=== PATIENT | male | born 1970 | race Caucasian/White ===

== ENCOUNTER 2018-07-29 17:11 | Emergency (ER) | payer MEDICAID ==
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
[2018-07-29 18:07] LABS: PLATELET COUNT 255 10^3/uL (150-400)
[2018-07-29] MEDS ORDERED: QUEtiapine FUMARATE 50 MG TAB PO ONE (18:54)
[2018-07-29] MEDS ORDERED: AMITRIPTYLINE HCL 100 MG TAB PO ONE (18:55)
[2018-07-29] MEDS ORDERED: QUEtiapine FUMARATE 200 MG TAB PO ONE (19:15)
[2018-07-29 19:30] VITALS: BP 122/71
== END 2018-07-29 19:30 | disposition home or self-care (01) ==
DX: T33.831A Superficial frostbite of right toe(s), initial encounter (principal); T33.832A Superficial frostbite of left toe(s), initial encounter; X31.XXXA Exposure to excessive natural cold, initial encounter; Y99.8 Other external cause status; E11.9 Type 2 diabetes mellitus without complications; F31.9 Bipolar disorder, unspecified; Z59.0 Homelessness

== ENCOUNTER 2018-07-31 15:23 | Emergency (ER) | payer MEDICAID ==
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
[2018-07-31 15:46] VITALS: BP 126/76
== END 2018-07-31 15:48 | disposition home or self-care (01) ==
LOC: EDUNIT#
DX: T33.831A Superficial frostbite of right toe(s), initial encounter (principal); T33.832A Superficial frostbite of left toe(s), initial encounter; X31.XXXA Exposure to excessive natural cold, initial encounter; Z59.0 Homelessness; F31.9 Bipolar disorder, unspecified

== ENCOUNTER 2018-07-31 18:47 | Inpatient (IN) | payer MEDICAID ==
[2018-07-31] MEDS ORDERED: SODIUM BICARBONATE 50 MEQ/50 ML SYR IVP ONE (18:52)
[2018-07-31] MEDS ORDERED: CHARCOAL/SORBITOL SOLUTION 25 GM/120 ML TUBE PO ONE (18:54)
[2018-07-31] MEDS ORDERED: PROPOFOL/EMULSION 1,000 MG/100 ML BOTTLE IV ONE (19:00)
[2018-07-31] MEDS ORDERED: SODIUM BICARBONATE 100 MEQ in D5W 1,000 ML IV ONE (19:00)
[2018-07-31 19:11] LABS: PLATELET COUNT 163 10^3/uL (150-400)
[2018-07-31] MEDS ORDERED: MIDAZOLAM 2 MG/2 ML VIAL IVP ONE (19:11)
--- NOTE | 2018-07-31 19:20 | EDPHY ---
H & P Time Seen by Provider: 07/31/18 18:52 HPI/ROS: Chief complaint. Poly pharmacy ODT HPI. 47-year-old male who was seen yesterday and today in our emergency department for frostbite to feet was discharged to [facility]. He apparently was given prescriptions of Seroquel and amitriptyline. The [facility] collapsed at the [facility]. EMS was called and patient was found to be unresponsive to pain. Nasal trumpet was placed without difficulty. No evidence of trauma from fall. It is unclear how many amitriptyline and Seroquel he took however the 2 pill bottles that EMS brought are empty. Ingestion was shortly prior to arrival. ROS 10 systems were reviewed and negative with the exception of the elements mentioned in the history of present illness Past Medical/Surgical History: Diabetes, hep C, spinal fusion, bipolar, PTSD, chronic back pain, atrial flutter Social History: Single, daily smoker, no alcohol Smoking Status: Current every day smoker Physical Exam: General Appearance: Unresponsive male vital signs show heart rate 109 Eyes: Pupils are small and poorly reactive. ENT, Mouth: Mucous membranes are moist. Respiratory: There are no retractions, lungs are clear to auscultation. Cardiovascular: Regular rate and rhythm. Gastrointestinal: Abdomen is soft and nontender, no masses, bowel sounds normal. Neurological: Unresponsive Skin: Warm and dry, no rashes. Musculoskeletal: Neck is supple nontender. Extremities symmetrical, full range of motion. Psychiatric: Patient is unresponsive there is no agitation. Constitutional: Initial Vital Signs Temperature (C) 35.4 C L 07/31/18 18:53 Heart Rate 109 H 07/31/18 18:53 Respiratory Rate 18 07/31/18 18:53 Blood Pressure 138/60 H 07/31/18 18:53 O2 Sat (%) 100 07/31/18 18:53 O2 Delivery Mode Non-Rebreather Mask O2 (L/minute) 15 Allergies/Adverse Reactions: poison rene extract Allergy (Verified 07/29/18 17:13) poison oak extract Allergy (Verified 07/29/18 17:13) Medical Decision Making - Diagnostics EKG Interpretation: EKG interpreted by me shows sinus tachycardia without ectopy and QRS at 124 milliseconds. Heart rate is 109 2nd EKG after treatment shows normal sinus rhythm and QRS is now 117 milliseconds. Heart rate 97 Imaging Results: Imaging Impressions Chest X-Ray 07/31/18 19:03 Impression: 1. Well-positioned ET tube. 2. Minimal interstitial edema versus pneumonitis. Procedures: IV normal saline monitor Sodium bicarbonate at bolus with 50 mEq. Sodium bicarbonate drip As the patient has potential for decreased respiration though currently seeming to handle secretions I am concerned about airway protection. Patient is intubated by me using a 7.5 endotracheal 2 with a glide scope after to using etomidate 20 mg I V. CO2 detector shows color change. Growth breath sounds are symmetrical. Steam in the endotracheal tube. Patient is given Versed post intubation for sedation and then started on propofol drip Post intubation chest x-ray shows tube to be in good position As the ingestion has been recent since the patient was just seen in the emergency department this afternoon we placed an NG tube and gave the patient charcoal and sorbitol and then remove the NG tube. [place] catheter is placed ED Course/Re-evaluation: Patient remained stable. No family here. I consulted and discussed case with Dr. Carrillo, hospitalist who agrees to the admission Differential Diagnosis: Ingestion of Seroquel and amitriptyline with beginning to have widened QRS Now after bicarb treatment QRS is narrowing. There is no ectopy. We do not know the amount that he took. Unknown currently if other medications have been ingested as well. Tox screen is pending. Critical Care Time: Critical care time exclusive procedures 45 min - Data Points Laboratory Results: Laboratory Results 07/31/18 19:00 07/31/18 19:00 07/31/18 07/31/18 19:00 19:00 WBC 11.08 10^3/uL H 10^3/uL (3.80-9.50) RBC 4.41 10^6/uL 10^6/uL (4.40-6.38) Hgb 13.1 g/dL L g/dL (13.7-17.5) Hct 38.2 % L % (40.0-51.0) MCV 86.6 fL fL (81.5-99.8) MCH 29.7 pg pg (27.9-34.1) MCHC 34.3 g/dL g/dL (32.4-36.7) RDW 11.9 % % (11.5-15.2) Plt Count 163 10^3/uL 10^3/uL (150-400) MPV 9.4 fL fL (8.7-11.7) Neut % (Auto) 42.3 % % (39.3-74.2) Lymph % (Auto) 45.1 % H % (15.0-45.0) [place] % (Auto) 7.0 % % (4.5-13.0) Eos % (Auto) 4.8 % % (0.6-7.6) Baso % (Auto) 0.4 % % (0.3-1.7) Nucleat RBC Rel Count 0.0 % % (0.0-0.2) Absolute Neuts (auto) 4.69 10^3/uL 10^3/uL (1.70-6.50) Absolute Lymphs (auto) 5.00 10^3/uL H 10^3/uL (1.00-3.00) Absolute Monos (auto) 0.78 10^3/uL 10^3/uL (0.30-0.80) Absolute Eos (auto) 0.53 10^3/uL H 10^3/uL (0.03-0.40) Absolute Basos (auto) 0.04 10^3/uL 10^3/uL (0.02-0.10) Absolute Nucleated RBC 0.00 10^3/uL 10^3/uL (0-0.01) Immature Gran % 0.4 % % (0.0-1.1) Immature Gran # 0.04 10^3/uL 10^3/uL (0.00-0.10) RBC/WBC/PLT Morphology TNP Platelet Estimate TNP Sodium 135 mEq/L mEq/L (135-145) Potassium 3.5 mEq/L mEq/L (3.3-5.0) Chloride 95 mEq/L L mEq/L (97-110) Carbon Dioxide 26 mEq/l mEq/l (22-31) Anion Gap 14 mEq/L mEq/L (6-14) BUN 10 mg/dL mg/dL (7-23) Creatinine 0.8 mg/dL mg/dL (0.7-1.3) Estimated GFR > 60 Glucose 304 mg/dL H mg/dL (70-100) Calcium 8.8 mg/dL mg/dL (8.5-10.4) Acetaminophen < 10 mcg/mL L mcg/mL (10-30) Ethyl Alcohol < 10 mg/dL mg/dL (0-10) Medications Given: Propofol (Diprivan 10 Mg/Ml (Premix)) 100 mls @ 0 mls/hr IV CONT LISA; Titrate PRN Reason: Protocol Stop: 01/27/19 19:59 Last Admin: 07/31/18 19:48 Dose: 100 mls Discontinued Medications Charcoal/Sorbitol (Actidose) 25 gm PO EDNOW ONE Stop: 07/31/18 18:55 Last Admin: 07/31/18 19:25 Dose: 25 gm Sodium Bicarbonate 100 meq/ (Dextrose) 1,100 mls @ 0 mls/hr IV EDNOW ONE Stop: 07/31/18 19:01 Last Admin: 07/31/18 19:19 Dose: 1,100 mls Midazolam HCl (Versed) 5 mg IVP EDNOW ONE Stop: 07/31/18 19:12 Last Admin: 07/31/18 19:10 Dose: 5 mg Ondansetron HCl (Zofran) 4 mg IVP EDNOW ONE Stop: 07/31/18 19:38 Last Admin: 07/31/18 19:23 Dose: 4 mg Sodium Bicarbonate (Sodium Bicarbonate) 50 meq IVP EDNOW ONE Stop: 07/31/18 18:53 Last Admin: 07/31/18 18:57 Dose: 50 meq Departure - Departure Disposition: [facility] Clinical Impression: Polypharmacy overdose Condition: Fair
[2018-07-31] MEDS ORDERED: ONDANSETRON 4 MG/2 ML VIAL ONE (19:24)
[2018-07-31] MEDS ORDERED: ONDANSETRON 4 MG/2 ML VIAL IVP ONE (19:37)
[2018-07-31] MEDS ORDERED: PROPOFOL/EMULSION 100 ML IV SCH (20:00)
[2018-07-31] MEDS ORDERED: ETOMIDATE 40 MG/20 ML INJ ONE (20:58)
[2018-07-31] MEDS ORDERED: ACETAMINOPHEN 325 MG TAB PO PRN (21:25)
[2018-07-31] MEDS ORDERED: ONDANSETRON 4 MG/2 ML VIAL IVP PRN (21:25)
[2018-07-31] MEDS ORDERED: ALBUTEROL 60 PUFFS/8 GM MDI IH PRN (21:25)
[2018-07-31] MEDS ORDERED: LORazepam 2 MG/ML INJ IVP PRN (21:25)
[2018-07-31] MEDS ORDERED: PROMETHAZINE HCL 25 MG/ML INJ IVP PRN (21:25)
[2018-07-31] MEDS ORDERED: D50W 25 GM/50 ML SYR IVP PRN (21:27)
[2018-07-31] MEDS ORDERED: NS 1,000 ML IV SCH (21:30)
--- NOTE | 2018-07-31 21:40 | CPEKG ---
Test Reason : OPEN Blood Pressure : / mmHG Vent. Rate : 109 BPM Atrial Rate : 109 BPM P-R Int : 151 ms QRS Dur : 124 ms QT Int : 394 ms P-R-T Axes : 068 079 009 degrees QTc Int : 531 ms Sinus tachycardia Nonspecific intraventricular conduction delay Confirmed by Reza Dunham ([id number]) on 07/31/2018 9:39:45 PM Referred By: Confirmed By:Reza Dunham
--- NOTE | 2018-07-31 21:40 | CPEKG ---
Test Reason : OPEN Blood Pressure : / mmHG Vent. Rate : 097 BPM Atrial Rate : 098 BPM P-R Int : 169 ms QRS Dur : 117 ms QT Int : 419 ms P-R-T Axes : 069 083 028 degrees QTc Int : 533 ms Sinus rhythm Nonspecific intraventricular conduction delay Probable anteroseptal infarct, old Confirmed by Reza Dunham ([id number]) on 07/31/2018 9:39:51 PM Referred By: Confirmed By:Reza Dunham
--- NOTE | 2018-07-31 22:56 | PDGENHP ---
History and Physical - Chief Complaint overdose - History of Present Illness 47 yo homeless M with PMH of bipolar d/o as well as multiple prior suicide attempts presenting with presumed polypharmacy overdose in the setting of presumed SA. This evaluation is limited by the fact that patient is intubated and sedated at the time of my evaluation, therefore history obtained largely by chart review. Patient had been evaluated in this ER 3 times in the last 2 days for complaints related to bilateral frostbite of the feet. After his discharge earlier in the day today, [facility] of his medications, specifically seroquel and amitritpyline and then found to be obtunded at [facility]. Patient presented back to the ER obtunded and s/p presumably intentional drug overdose. History Information - Allergies/Home Medication List Allergies/Adverse Reactions: poison rene extract Allergy (Verified 07/29/18 17:13) poison oak extract Allergy (Verified 07/29/18 17:13) Home Medications: Unobtainable 07/31/18 [Last Taken Unknown] I have personally reviewed and updated: family history, medical history, social history, surgical history - Past Medical History psychiatric history Additional medical history: Mental health disorder, suspected PTSD and bipolar disease, right foot wound with foreign object, hepatitis-C virus unclear whether he has received pneumonia, perforation of duodenal ulcer - Surgical History Additional surgical history: exploratory laparotomy on 08/15/2016 with Oscar patch placed for an anterior perforated duodenal ulcer, recent right foot debridement - Family History Positive for: non-pertinent Additional family history: mother with bipolar disease, sibling with bipolar disease, sibling with successful suicide attempt, alcoholism - Social History Smoking Status: Current every day smoker Alcohol Use: Other (unobtainable) Drug Use: Other (unobtainable) Additional social history: homeless Review of Systems Review of Systems: ROS: 10pt was reviewed & negative except for what was stated in HPI & below Physical Exam Physical Exam: Temp Pulse Resp BP Pulse Ox 36.0 C 99 14 147/83 H 100 07/31/18 20:37 07/31/18 20:37 07/31/18 20:37 07/31/18 20:37 07/31/18 20:37 FIO2 (%) 100 Constitutional: appears nourished, unkempt Eyes: PERRL, anicteric sclera Ears, Nose, Mouth, Throat: other (ETT in place) Cardiovascular: regular rate and rhythym, no murmur, rub, or gallop, No edema Respiratory: clear to auscultation Gastrointestinal: normoactive bowel sounds, soft, non-tender abdomen Genitourinary: no bladder tenderness Skin: warm Musculoskeletal: No asymmetric calves Neurologic: other (intubated and sedated) Psychiatric: other (intubated and sedated) Lab Data & Imaging Review 07/31/18 19:00 07/31/18 19:00 WBC 11.08 10^3/uL (3.80-9.50) H 07/31/18 19:00 RBC 4.41 10^6/uL (4.40-6.38) 07/31/18 19:00 Hgb 13.1 g/dL (13.7-17.5) L 07/31/18 19:00 Hct 38.2 % (40.0-51.0) L 07/31/18 19:00 MCV 86.6 fL (81.5-99.8) 07/31/18 19:00 MCH 29.7 pg (27.9-34.1) 07/31/18 19:00 MCHC 34.3 g/dL (32.4-36.7) 07/31/18 19:00 RDW 11.9 % (11.5-15.2) 07/31/18 19:00 Plt Count 163 10^3/uL (150-400) 07/31/18 19:00 MPV 9.4 fL (8.7-11.7) 07/31/18 19:00 Neut % (Auto) 42.3 % (39.3-74.2) 07/31/18 19:00 Lymph % (Auto) 45.1 % (15.0-45.0) H 07/31/18 19:00 [place] % (Auto) 7.0 % (4.5-13.0) 07/31/18 19:00 Eos % (Auto) 4.8 % (0.6-7.6) 07/31/18 19:00 Baso % (Auto) 0.4 % (0.3-1.7) 07/31/18 19:00 Nucleat RBC Rel Count 0.0 % (0.0-0.2) 07/31/18 19:00 Absolute Neuts (auto) 4.69 10^3/uL (1.70-6.50) 07/31/18 19:00 Absolute Lymphs (auto) 5.00 10^3/uL (1.00-3.00) H 07/31/18 19:00 Absolute Monos (auto) 0.78 10^3/uL (0.30-0.80) 07/31/18 19:00 Absolute Eos (auto) 0.53 10^3/uL (0.03-0.40) H 07/31/18 19:00 Absolute Basos (auto) 0.04 10^3/uL (0.02-0.10) 07/31/18 19:00 Absolute Nucleated RBC 0.00 10^3/uL (0-0.01) 07/31/18 19:00 Immature Gran % 0.4 % (0.0-1.1) 07/31/18 19:00 Immature Gran # 0.04 10^3/uL (0.00-0.10) 07/31/18 19:00 RBC/WBC/PLT Morphology TNP 07/31/18 19:00 Platelet Estimate TNP 07/31/18 19:00 VBG Lactic Acid 0.8 mmol/L (0.7-2.1) 07/31/18 21:40 Sodium 135 mEq/L (135-145) 07/31/18 19:00 Potassium 3.5 mEq/L (3.3-5.0) 07/31/18 19:00 Chloride 95 mEq/L (97-110) L 07/31/18 19:00 Carbon Dioxide 26 mEq/l (22-31) 07/31/18 19:00 Anion Gap 14 mEq/L (6-14) 07/31/18 19:00 BUN 10 mg/dL (7-23) 07/31/18 19:00 Creatinine 0.8 mg/dL (0.7-1.3) 07/31/18 19:00 Estimated GFR > 60 07/31/18 19:00 Glucose 304 mg/dL (70-100) H 07/31/18 19:00 Calcium 8.8 mg/dL (8.5-10.4) 07/31/18 19:00 Total Bilirubin 0.5 mg/dL (0.1-1.4) 07/31/18 21:40 Conjugated Bilirubin 0.0 mg/dL (0.0-0.5) 07/31/18 21:40 Unconjugated Bilirubin 0.5 mg/dL (0.0-1.1) 07/31/18 21:40 AST 62 IU/L (17-59) H 07/31/18 21:40 ALT 54 IU/L (21-72) 07/31/18 21:40 Alkaline Phosphatase 63 IU/L (38-126) 07/31/18 21:40 Total Protein 4.5 g/dL (6.3-8.2) L 07/31/18 21:40 Albumin 2.6 g/dL (3.5-5.0) L 07/31/18 21:40 Salicylates < 1.0 mg/dL (2.0-20.0) L 07/31/18 21:40 Urine Opiates Screen NEGATIVE (NEGATIVE) 07/31/18 19:33 Acetaminophen < 10 mcg/mL (10-30) L 07/31/18 19:00 Urine Barbiturates NEGATIVE (NEGATIVE) 07/31/18 19:33 Ur Phencyclidine Scrn NEGATIVE (NEGATIVE) 07/31/18 19:33 Ur Amphetamine Screen NEGATIVE (NEGATIVE) 07/31/18 19:33 U Benzodiazepines Scrn NEGATIVE (NEGATIVE) 07/31/18 19:33 Urine Cocaine Screen NEGATIVE (NEGATIVE) 07/31/18 19:33 U Marijuana (THC) Screen NON-NEGATIVE (NEGATIVE) H 07/31/18 19:33 Ethyl Alcohol < 10 mg/dL (0-10) 07/31/18 19:00 Visualized and Interpreted imaging results: Yes Interpretation: EGT in good position Visualized and Interpreted EKG results: Yes EKG additional interpertation: sinus tachycardia, nonspecific IVCD Assessment & Plan Assessment: 47 yo M with hx of bipolar d/o with multiple prior SA's presenting s/p suicide attempt by polydrug overdose # polysubstance overdose/SA: patient with hx of prior SA and this likely represents another attempt. By bottles available it appears he overdosed on seroquel and amitriptyline--exact amount difficult to ascertain as bottles labeled strangely. He was noted to be obtunded and not protecting his airway, ecg relatively benign with normal QT. Reviewed toxicology data and amitriptyline overdose response can be unpredictable, seroquel likely to lead to respiratory depression. Continue cardiac monitoring, monitor in ICU. Patient did receive charcoal in ED. 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 Old records reviewed and summarized as above. Care plan reviewed with ER doctor. > 45 critical care time spent with this patient in reviewing labs/imaging and coordinating care with ER doctor and nursing at patients bed side.
[2018-08-01 04:45] LABS: PLATELET COUNT 149 10^3/uL (150-400)
[2018-08-01] MEDS ORDERED: PROTOCOL POTASSIUM 1 DOSE MISC PRN ×2 (07:26→15:04)
[2018-08-01] MEDS: POTASSIUM Cl (KCl) 100 ML IV SCH ×4 (08:38→11:01)
[2018-08-01] MEDS: INSULIN LISPRO 100 UNIT/ML SC SCH ×3 (08:38→19:53)
[2018-08-01] MEDS ORDERED: ENOXAPARIN 40 MG/0.4 ML SYR SC SCH (09:00)
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
--- NOTE | 2018-08-01 09:45 | HOSPPROG ---
Hospitalist Progress Note Assessment/Plan: 47 yo M w bipolar, frostbite here w amitritpyline/seroquel overdose, resp failure TCA overdose: intervals OK (interp by me) resp failure: largely mental status driven on SBT now suspect he will be extubated today suicide attempt: M1 hold after extubation frostbite: no infection wound care consult proph: lmwh dispo: icu, m1 hold 35 minutes crit care Subjective: case discussed w dr beatty Objective: Vital Signs Temp Pulse Resp BP Pulse Ox 37.1 C 93 17 145/84 H 100 08/01/18 09:00 08/01/18 09:00 08/01/18 09:00 08/01/18 09:00 08/01/18 09:00 Laboratory Results 08/01/18 04:30 08/01/18 04:30 07/31/18 08/01/18 08/02/18 05:59 05:59 05:59 Intake Total 2884 Output Total 1900 Balance 984 - Physical Exam Constitutional: other (intubated and sedated) Eyes: PERRL, anicteric sclera Ears, Nose, Mouth, Throat: moist mucous membranes, hearing normal Cardiovascular: regular rate and rhythym, no murmur, rub, or gallop Respiratory: no respiratory distress, No no rales or rhonchi Gastrointestinal: normoactive bowel sounds, soft, non-tender abdomen Genitourinary: no bladder fullness, dickson in urethra Skin: warm, normal color Musculoskeletal: full muscle strength, no muscle tenderness Neurologic: No AAOx3 Psychiatric: No interacting appropriately Lymph, Heme, Immunologic: no cervical LAD ICD10 Worksheet Patient Problems: Problems Problem Status Onset Abdominal pain Acute Frostbite Acute Perforated duodenal bulb ulcer Acute Pneumonia Acute
--- NOTE | 2018-08-01 14:07 | ASMTCMCOM ---
CM Note CM Note Notes: Patient brought to ED by EMS after he reportedly became unresponsive at a "[facility]" yesterday (07/31) evening. I saw patient at [facility] on , 07/30, for complaints r/t his frostbitten toe. I sent him to [facility] for wound care. He was seen there on and also , 07/31. After his wound care appt, he was screened for [facility] services (he needed a new prescriber). According to Rolanda, the auto bumper straightener at [facility], the MHP neurology manager felt he would be better served by [facility] crisis services. This is when the story becomes unclear: Rolanda was under the impression that patient was sent to [facility] for a mental health hold; however, per our records, he was seen in the [facility] ED twice that day, at 3:30 PM (discharged to street) and at 7:15PM (admitted), so it doesn't seem like he was ever sent to [facility]. Rolanda did confirm that he was given 5-day supplies of his medications at some point yesterday. Patient is homeless and utilizes services at [facility]. As mentioned above, he is also a client of [facility] at their [facility]. When he is less sedated, we will speak to him about what happened and what we can do to support him upon discharge. [facility] telephonic nurse case manager and [facility] staff informed of his admission. CM to follow. Date Signed: 08/01/2018 02:06 PM Electronically Signed By:Tammy Peace RN
--- NOTE | 2018-08-01 14:18 | ASMTCASEMG ---
Living Arrangements What is your living Answers: Alone arrangement? Who do you live with? Type Of Residence What kind of residence do Answers: Homeless you live in? Discharge Plan Comments Coordination Status Comments Notes: Patient is a 47yo , homeless male with a hx of Bipolar disorder as well as prior suicide attempts presenting with polypharmacy overdose. Patient was obtunded when he presented back to the ER after 3 visits in the last 2 days. Patient had initially been evaluated for complaints related to bilateral frostbite of the feet. He has been admitted for polysubstance overdose, acute hypoxic respiratory failure, frostbite, Bipolar disorder, SMA and left renal artery stenosis, recent perforated duodenal ulcer/peritonitis, and leukocytosis. Wound care has been ordered. Patient will be placed on an M1 hold and will require a TLC psych eval when he is medically clear. Patient is homeless.CM will follow. Date Signed: 08/01/2018 02:17 PM Electronically Signed By:Catrachita Thomas LCSW
--- NOTE | 2018-08-01 14:28 | PDMN ---
Medical Necessity Medical necessity: Pt meets IP criteria per & LINETTE M-153; est los >2 mn for eval/tx of polysubstance overdose w/acute hypoxic respiratory failure & bilateral frostbite of feet; pt intubated & sedated, on M1 hold due to likely suicide attempt; admit to ICU for further monitoring, safety/stabilization, Pulmonology/TLC/Wound Care consults & IVFs; per H&P & order 07/31/18
[2018-08-01] MEDS ORDERED: ALBUTEROL 60 PUFFS/8 GM MDI IH PRN (14:37)
[2018-08-01] MEDS ORDERED: POTASSIUM CL 10 MEQ TAB PO ONE (15:05)
--- NOTE | 2018-08-01 15:59 | WOCRNPDOC ---
WOCRKrishna Advanced Assessment Note - Skin Integrity Problem, Advanced Assess Right Toes Frostbite Dressing Type: Open to Air Exudate Amount: Moderate Exudate Characteristic(s): Serosanguinous Kylie Wound Tissue: Erythema, Non-blanching, Swollen, Shiny Kylie Wound Swelling: Moderate Wound Bed Color: Red Wound Bed Constitution: Red/[place] - Non Granular Tissue, Intact Serous Filled Blister, De-roofed Serous Blister Site Measurement - Head-to-Toe Length X Width X Depth (cm): Right great toe deroofed blister 1.4x1.8x.02 Skin Integrity Problem Comment: Patient has frostbite from cold exposure on 10/01. Right great toe has deroofed blister over area from interphalangeal joint to proximal phalange. Second toe has intact serous filled blister above proximal phalange. All toes present with discoloration from proximal phalange to distal end, with 3rd 4th and 5th toes having traffic technician discoloration. Great toe and 2nd toe appear much darker. On plantar aspect of toes, 2nd toe presents the darkest. Right great toe also has an intact serous blister on medial aspect of plantar surface. Wound care will follow. Left Toes Frostbite Dressing Type: Open to Air Kylie Wound Tissue: Non-blanching, Swollen, Shiny Kylie Wound Swelling: Moderate Wound Bed Color: Black, Blue Wound Bed Constitution: Intact Serous Filled Blister Site Measurement - Head-to-Toe Length X Width X Depth (cm): 4th toe 0.8x0.7xintact blister Skin Integrity Problem Comment: Patient has frostbite from cold exposure on 10/01. All toes are discolored from distal phalange to distal end of toe, with 2nd and 3rd toe presenting darkest. Intact serous filled blister on proximal phalange of 4th toe. Plantar surfaces of toes present with same discoloration pattern, with 2nd and 3rd toes again darker than other toes. Wound care will follow. CHRISTIAN Noel in room for assessment.
--- NOTE | 2018-08-01 19:19 | GCON ---
PULMONARY CRITICAL CARE CONSULTATION. DATE OF CONSULTATION: 08/01/2018 HISTORY OF PRESENT ILLNESS: This patient is a 47-year-old male with a history of bipolar disorder an d homelessness, with multiple prior suicide attempts. He apparently had been seen in the emergency d epartment several times in the last few days, complaining of bilateral frostbite but was stable enoug h for discharge. He apparently went to [facility] to get refills of medications and then was found obtunded with empty pill bottles in his hands. He is brought to the emergency department where he was intubated for airway protection and hypoxemia and a presumed intentional drug overdose. At the time of my evaluation, the patient was on the ventilator, was unable to provide any historica l details. REVIEW OF SYSTEMS: As far as I can tell from medical record was otherwise negative. PAST MEDICAL HISTORY: Includes bipolar disorder, PTSD, hepatitis C, perforated duodenal ulcer. PAST SURGICAL HISTORY: Includes exploratory laparotomy, recent foot debridement. SOCIAL HISTORY: He is a current smoker. Alcohol and recreational use are uncertain though marijuana was in his tox screen. FAMILY HISTORY: Includes bipolar disorder and suicide attempts. CURRENT MEDICATIONS: Include albuterol, Lovenox, insulin, Ativan, Phenergan. PHYSICAL EXAM: VITAL SIGNS: At the time of my evaluation, he was afebrile. Blood pressure 137/76, heart rate of 89, respirations 18, oxygen saturation 100% on ventilator at 40%, 5 of PEEP. He was ea sily aroused and cooperative and followed commands on the ventilator, and was placed on a 5 in 5 wean which he tolerated well followed by an extubation at that time. HEENT: His pupils are equally round and reactive to light. Nonicteric and noninjected. Mucous membranes moist without erythema or exud ate. NECK: Supple without adenopathy or jugular vein distention. LUNGS: Breath sounds were clear to auscultation bilaterally without wheezes, rubs, or rales. HEART: Regular rate and rhythm without mu rmurs, rubs, gallops. ABDOMEN: Soft, nontender, nondistended without hepatosplenomegaly. EXTREMITI ES: No clubbing, cyanosis, or edema. NEUROLOGIC: Nonfocal, including cranial nerves, deep tendon re flexes. OBJECTIVE DATA: Includes a white count of 11 when he arrived, down to 8.15 today, hematocrit 34, nati telets of 149. Basic metabolic panel was essentially normal though his potassium was 3.5 on arrival, 2.9 this morning, subsequently replaced. Liver function tests were fine. Albumin was 2.6. Toxicol ogy screen showed marijuana. EKG showed no evidence of TCA overdose. ASSESSMENT AND PLAN: 1. Presumed suicide attempt. The patient with multiple attempts in the past. Once he is extubated, we should be able to clarify that and potentially involve Psychiatry for further evaluation of this problem. 2. Acute respiratory failure with hypoxemia and ventilator dependency. He seemed to be doing quite well. He is extubated easily without difficulty and should continue with pulmonary toilet moving for gabriel. /[id number]/MODL
[2018-08-01] MEDS ORDERED: oxyCODONE IR 5 MG TAB PO PRN (21:08)
[2018-08-01 21:17] VITALS: BP 132/73
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
--- NOTE | 2018-08-01 23:03 | ASMTTCLDSP ---
TLC Discharge Disposition Disposition: Answers: Admit Disposition Notes: Notes: Pt to be admitted to [facility]N Discharge Concerns/Recommendations: Notes: Dr. Ilene Welsh, on-call psychiatrist concurred with the ICU hospitalist Dr.J Wallace that pt appears to meet the 27-65 criteria requiring in-pt psychiatric hospitalization as pt appears to be an imminent risk to self and is gravely disabled due to a mental illnes condition. For inpatient Ilene Welsh MD admission, the following psychiatrist agreed to accept patient for admission to [facility] ([facility] Type of Hold: Answers: M1/72-hour Hold Hold initiated by: Answers: Psychiatrist Date Signed: 08/01/2018 11:02 PM Electronically Signed By:Josee Clark
--- NOTE | 2018-08-02 08:54 | CPEKG ---
Test Reason : OPEN Blood Pressure : / mmHG Vent. Rate : 094 BPM Atrial Rate : 094 BPM P-R Int : 157 ms QRS Dur : 107 ms QT Int : 383 ms P-R-T Axes : 074 076 045 degrees QTc Int : 479 ms Sinus rhythm Borderline prolonged QT interval Confirmed by Shorty Aj ([id number]) on 08/02/2018 8:54:17 AM Referred By: Confirmed By:Shorty Aj
== END 2018-08-01 23:35 | DRG 812 ==
LOC: EDUNIT# → EEVIPCON 19:20 → F2N 20:15
PROVIDERS: ADMIT Internal Medicine; ATTEND Internal Medicine
PROC: 5A1935Z Respiratory Ventilation, Less than 24 Consecutive Hours (ICD-10-PCS; principal; 2018-07-31)
PROC: 0BH17EZ Insertion of Endotracheal Airway into Trachea, Via Natural or Artificial Opening (ICD-10-PCS; principal; 2018-07-31)
DX: T50.992A Poisoning by other drugs, medicaments and biological substances, intentional self-harm, initial encounter (principal); J96.01 Acute respiratory failure with hypoxia; T43.012A Poisoning by tricyclic antidepressants, intentional self-harm, initial encounter; T33.831A Superficial frostbite of right toe(s), initial encounter; T33.832A Superficial frostbite of left toe(s), initial encounter; F31.9 Bipolar disorder, unspecified; E11.9 Type 2 diabetes mellitus without complications; Z59.0 Homelessness; Z72.0 Tobacco use; X31.XXXA Exposure to excessive natural cold, initial encounter
CPT/HCPCS: 80305; 96374; G0480; J1650; J1815; J2250; J2405; J2550; J2704; J3480

== ENCOUNTER 2018-08-02 | Inpatient (IN) | payer MEDICAID, OTHER ==
[2018-08-02] MEDS ORDERED: MAGNESIUM HYDROXIDE 30 ML UDCUP PO PRN (00:17)
[2018-08-02] MEDS ORDERED: MAG HYDROX/AL HYDROX/SIMETH 30 ML UDCUP PO PRN (00:17)
[2018-08-02] MEDS ORDERED: NICOTINE POLACRILEX 2 MG GUM B PRN (00:17)
[2018-08-02] MEDS: LORazepam 0.5 MG TAB PO PRN ×2 (00:43→18:03)
[2018-08-02] MEDS: oxyCODONE IR 5 MG TAB PO PRN ×5 (00:44→21:54)
[2018-08-02] MEDS: OLANZapine 5 MG TAB PO PRN ×2 (00:44→21:13)
[2018-08-02] MEDS ORDERED: PNEUMOCOCCAL 0.5ML VACCINE VIAL IM ONE (11:39)
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
--- NOTE | 2018-08-02 12:23 | WOCRNPDOC ---
JERRELL Advanced Assessment Note - Skin Integrity Problem, Advanced Assess Right Toes Frostbite Dressing Type: Mepilex Transfer Dressing Description: Clean/Dry, Intact Exudate Amount: Scant Exudate Color: Yellow Exudate Characteristic(s): Serous Integumentary Issue Intervention: Dressing Removed Kylie Wound Tissue: Erythema, Non-blanching, Swollen, Shiny Kylie Wound Swelling: Moderate Wound Bed Color: Black, Blue, Red Wound Bed Constitution: Red/[place] - Non Granular Tissue, Intact Serous Filled Blister, De-roofed Serous Blister Site Measurement - Head-to-Toe Length X Width X Depth (cm): Deroofed blister on right great toe - 1.7x2.5x0.2 Skin Integrity Problem Comment: Frostbite from cold exposure on 07/26/18. Deroof blister noted on 1st toe. Intact serous filled blisters noted on 1st and 2nd toes. 2nd, 3rd, and 4th toes have the most discoloration and appear darker than the 1st and 5th toes. Mepilex transfer dressing was in place. Removed so patient could shower. Will apply silvasorb to deroofed blister. Please keep Mepilex transfer woven between toes to keep skin off skin. If blisters deroof, apply silvasorb. Wound care will round again on Sunday. Lauro in room for assessment. Left Toes Frostbite Dressing Type: Mepilex Transfer Dressing Description: Clean/Dry, Intact Exudate Amount: Scant Exudate Color: Yellow Exudate Characteristic(s): Serous Integumentary Issue Intervention: Dressing Removed Kylie Wound Tissue: Non-blanching, Swollen, Shiny Kylie Wound Swelling: Moderate Wound Bed Color: Black, Blue Wound Bed Constitution: Intact Serous Filled Blister Skin Integrity Problem Comment: Patient has frostbite from cold exposure on 10/01. Intact serous filled blister noted on the 4th toe. All toes are discolored with the 2nd and 3rd toe the darkest. Dressing removed to allow patient to shower. Please keep mepilex transfer woven between toes to keep skin off skin. Wound care will round again on Sunday. Lauro in room for assessment.
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
[2018-08-02] MEDS ORDERED: SENNOSIDES 1 TAB PO PRN (14:17)
--- NOTE | 2018-08-02 14:26 | PDMN ---
Medical Necessity Medical necessity: Pt meets IP criteria per & LINETTE M-153; est los >2 mn for eval/tx of polysubstance overdose; pt on M1 hold due to suicide attempt; admit for further monitoring, safety, crisis stabilization & med management; hx homelessness; bipolar, PTSD; per H&P & order 08/02/18
--- NOTE | 2018-08-02 15:04 | BCON ---
INTERNAL MEDICINE CONSULTATION DATE OF CONSULTATION: 08/02/2018 REFERRING PHYSICIAN: Dr. Poole REASON FOR REFERRAL: Medical clearance for inpatient behavioral health stay. HISTORY OF PRESENT ILLNESS: This patient came to the emergency department several days ago, was sent from the [facility] with frostbite to his feet. He was evaluated and sent back out. He is homeless and had been at the [facility]. He overdosed on medications, including quetiapine and amitriptyline, while at the alf and was found obtunded and was brought back to the hospital. He required intubation for airway protection but rapidly recovered consciousness and was extubated. He had consultation with the wound nurse regarding frostbite and had dressing changes and wound care orders. He was medically stable and transferred to Inpatient Behavioral Health for further psychiatric care. Currently, he complains of pain in his feet. Otherwise, he is without any acute complaints. PAST MEDICAL HISTORY: 1. Psychiatric issues with diagnoses including depression, bipolar disorder, posttraumatic stress disorder, and psychosis. 2. Hepatitis C. 3. Perforation of duodenal ulcer. 4. Lumbar spine problems with report of crushed vertebrae. 5. Diabetes mellitus type 2. PAST SURGICAL HISTORY: He has had a laparotomy and Oscar patch for anterior perforated duodenal ulcer. MEDICATIONS: 1. Quetiapine. 2. Amitriptyline. 3. Albuterol. SOCIAL HISTORY: He is homeless. 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 He is a smoker. FAMILY HISTORY: Noncontributory. REVIEW OF SYSTEMS: He says he feels chilled. He reports he has had an approximately 50-pound weight loss which was volitional and accomplished by bicycle riding and no longer takes medications for diabetes. He has pain in his feet. Otherwise, he is not in pain. He has no cough or dyspnea. He has constipation for several days. There is no nausea or vomiting. Other than his toes, there is no joint pain or joint swelling. He denies any urologic issues. Otherwise, a 10-point review of systems is negative. PHYSICAL EXAM: VITAL SIGNS: Blood pressure is 138/70, heart rate is 87, respiratory rate is 16, oxygen saturation is 96% on room air, temperature is 36.7 degrees centigrade. These vitals were just after midnight today. His weight is 77.1 kg for a body mass index of 23.7. GENERAL: This is a well- nourished, well-developed man, dressed in jeans in a [facility] smock, cooperative and in no acute distress. HEENT: Extraocular movements are intact. Pupils are equal, round, reactive to light. Mucous membranes are moist. Dentition is in good condition. NECK: Supple. HEART: Regular rate and rhythm with no murmurs, rubs, or gallops. LUNGS: Clear to auscultation bilaterally. ABDOMEN: Benign. EXTREMITIES: There is no edema. His toes are swollen and violaceous. On the left great toe, there is a deroofed blister approximately 2 cm. NEUROLOGIC: He is alert and oriented x3. Cranial nerves 2 -12 are grossly intact. There is no focal weakness, and sensation is intact to light touch. LABORATORY STUDIES: From his hospitalization: CBC initially showed an elevated white blood cell count to 11.08 and mild anemia with a hemoglobin of 13.1 and hematocrit of 38.2 on 07/31. On 08/01, the leukocytosis had resolved. He had progression of anemia with a hemoglobin of 11.8 and hematocrit of 34.2. He had mild thrombocytopenia with a platelet count of 149. Venous blood glucose lactic acid was normal at 0.8 on 07/31/2018. His serum chemistry initially showed hypokalemia with a potassium of 2.9 on 08/01/2018. Renal function and electrolytes were otherwise overall within normal limits. His potassium was repleted and subsequently normalized. Hemoglobin A1c was slightly elevated at 6.3, calcium was low at 7.1, and albumin was low at 2.6. Liver function tests showed a mildly elevated AST at 62. ALT, alk phos, and bilirubin were normal. Lipid panel showed a low cholesterol at 82, a low LDL at 23, and HDL normal at 41. Toxicology screen in the serum was negative for acetaminophen or ethyl alcohol or salicylates. Toxicology screen in the urine was non-negative for marijuana, but otherwise negative for substances of abuse. ASSESSMENT/RECOMMENDATIONS: 1. Mental health issues pending further evaluation and management per Psychiatry and the mental health team. 2. Frostbite to feet. Wound care orders are in the chart. There is no sign of infection at present. He will need to follow up after release from Inpatient Behavioral Health with the [facility]. It is also very important for him to avoid refreezing his feet. If possible, arrangements should be made for him to have a place to live through the winter. 3. Intentional overdose. He appears to have avoided any serious sequelae. 4. Anemia possibly of chronic disease. He is not symptomatic and it is not significant. He can follow up with primary care after his release. Looking back further in the chart on 07/29/2018, when he 1st came to the attention of the emergency department for his frostbite, he did not have anemia, most likely his blood counts will recover to normal. 5. History of hepatitis C with elevated ALT. There is no indication for any further evaluation at present. Once he has a stable living situation, he can consider referral to Gastroenterology or Infectious Disease for possible antiviral treatment. 6. History of diabetes. He has had elevated blood sugars in his recent encounters with the medical system, but hemoglobin A1c was 6.3, indicating adequate control on no medications. Advise continuing appropriate diet and exercise. I see no medical contraindications to this patient's continued stay on the inpatient behavioral health unit or to any psychiatric medications or procedures. Thank you very much for including me in the care of this patient, and please do not hesitate to contact me or the hospitalist service should there be need for further medical evaluation. /[id number]/MODL MTDD
[2018-08-03] MEDS: oxyCODONE IR 5 MG TAB PO PRN ×3 (08:03→21:04)
[2018-08-03] MEDS: ACETAMINOPHEN 325 MG TAB PO PRN (14:30)
[2018-08-03] MEDS: OLANZapine 5 MG TAB PO PRN ×2 (14:41→21:04)
[2018-08-03] MEDS: LORazepam 0.5 MG TAB PO PRN (14:41)
[2018-08-03] MEDS ORDERED: MELATONIN 3 MG TAB PO PRN (15:11)
--- NOTE | 2018-08-03 17:48 | SOAPPROG ---
SOAP Progress Note Assessment/Plan: Assessment: 47 yo with h/o multiple dx's including Bipolar, PTSD, homeless. Patient took OD of Seroquel and amitriptyline and was admitted to inpatient behavioral health. Plan: 08/03/18 17:46 1. Hold outpatient meds for now d/t recent OD. 2. Do not recommend prescribing amitriptyline for this patient given risk of OD. 3. Patient is currently being treated for bilateral frostbite. Has oxycodone PRN for pain. Using walker. 4. Patient requested throat lozenge d/t irritation from intubation. 5. Patient also requested melatonin to help with sleep. 6. [facility] expires tomorrow. Subjective: Patient wearing hospital scrubs and using walker to ambulate d/t frostbite of toes. He c/o throat irritation from intubation. Will prescribe throat lozenge to alleviate discomfort. Patient also requests melatonin to help with sleep. Patient is taking oxycodone for pain related to frostbite. Patient is currently denying any SI/HI. Objective: Vital Signs Temp Pulse Resp BP Pulse Ox 36.6 C 83 14 126/73 H 99 08/03/18 06:00 08/03/18 06:00 08/03/18 06:00 08/03/18 06:00 08/03/18 06:00 MSE: Affect: Flat Mood: "OK" TP: Linear TC: Denies any SI/HI Insight/ Judgment: Poor - Time Spent With Patient Time Spent With Patient: 15" - Pending Discharge Pending Discharge Within 24 Hours: No Pending Discharge Within 48 Hours: No ICD10 Worksheet Patient Problems: Problems Problem Status Onset Abdominal pain Acute Frostbite Acute Perforated duodenal bulb ulcer Acute Pneumonia Acute
[2018-08-04] MEDS: oxyCODONE IR 5 MG TAB PO PRN ×4 (06:12→19:01)
[2018-08-04] MEDS: CEPACOL LOZENGE PO PRN (10:33)
[2018-08-04] MEDS: LORazepam 0.5 MG TAB PO PRN (13:19)
[2018-08-04] MEDS: OLANZapine 5 MG TAB PO PRN ×2 (13:19→19:01)
--- NOTE | 2018-08-04 14:34 | ASMTCMCOM ---
CM Note CM Note Notes: Pt. reports he left his personal property under the porch at the [facility] in [place]. Pt. asked for CC's help to locate his property. Pt. stated he was arrested for "auto theft", adding he got a car from someone who said they were the intermodal customer service, but were not the intermodal customer service. Pt. stated he was not trying to steal the car. Pt. stated he was also charged for kicking in a plywood door at the [facility]. Pt. stated he did kick in a plywood door to "get my medications" and other property that was at the [facility]. Pt. stated he believes the police have his property, including a binder with pt's certificates, certificate, social security benefits and documents. Pt. stated he does have his wallet, but will need to get a CO ID after discharge. Pt. denied SI, HI, AVH and paranoia. Pt. presents as angry, demanding, guarded, with fair eye contact, and cooperative. Staff report pt. sleeping 9 hours, being medication compliant and meeting with [place] police today about his property. Pt. stated the police have his property and he will need to pick it up after discharge. Date Signed: 08/04/2018 02:34 PM Electronically Signed By:Akila Lopes
--- NOTE | 2018-08-04 16:02 | ASMTCMCOM ---
CM Note CM Note Notes: Pt shared with CC his public space attendant's information Toshia Bullard - [phone]. Please send Toshia a letter that pt was in the hospital upon pt's discharge [address] [place] [address] Date Signed: 08/04/2018 04:01 PM Electronically Signed By:Akila Lopes
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
[2018-08-05] MEDS: ACETAMINOPHEN 325 MG TAB PO PRN ×2 (06:11→19:51)
[2018-08-05] MEDS: oxyCODONE IR 5 MG TAB PO PRN ×4 (06:11→22:49)
[2018-08-05] MEDS ORDERED: QUEtiapine FUMARATE 100 MG TAB PO ONE (14:30)
--- NOTE | 2018-08-05 15:09 | ASMTCMCOM ---
CM Note CM Note Notes: The patient reported that he is ready to discharge; he feels that he has improved since his admission. This engineering writer is coordinating with the [facility] inpatient liaision to set up outpatient follow up appointments for this patient. This engineering writer is advocating for this patient to transition into [facility]'s respite care upon discharge. Date Signed: 08/05/2018 03:09 PM Electronically Signed By:Anaid Camacho
[2018-08-05] MEDS: CEPACOL LOZENGE PO PRN (19:52)
[2018-08-05] MEDS ORDERED: QUEtiapine FUMARATE 200 MG TAB PO SCH (21:00)
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
[2018-08-06] MEDS: ACETAMINOPHEN 325 MG TAB PO PRN (02:39)
[2018-08-06] MEDS: oxyCODONE IR 5 MG TAB PO PRN ×4 (02:39→19:11)
[2018-08-06] MEDS: QUEtiapine FUMARATE 100 MG TAB PO PRN ×2 (02:43→07:59)
--- NOTE | 2018-08-06 11:08 | ASMTCMCOM ---
CM Note CM Note Notes: CC found out during rounds that client has a fever (low grade) 99.1 (which will be re-checked) possibly due a brewing problem from his current frostbite situation and the living conditions prior to arrival (living under a scientologist outside). Provider, would like the hospitalist to re-evaluate this client later this afternoon when on unit, etc. CC will provide additional information when it is made available. Date Signed: 08/06/2018 11:07 AM Electronically Signed By:Xander Montana
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
--- NOTE | 2018-08-06 12:22 | ASMTBHDC ---
Notes Note: Notes: CC confirmed client's discharge plan. Client to go to [facility] for repsite program through [facility] Follow Up: Mental Health [address], [address] [place], [address] O# [phone] Next Appointment: August 14 (08/14/18) at 9am at [facility] dustin/Galo Wilder to complete Comprehensive Assessment. Additional Resources: [facility] [address] [place] [address] [facility] [place] [id number] Date Signed: 08/06/2018 12:21 PM Electronically Signed By:Xander Montana
[2018-08-06] MEDS ORDERED: QUEtiapine FUMARATE 50 MG TAB PO PRN (12:38)
--- NOTE | 2018-08-06 14:22 | SOAPPROG ---
SOAP Progress Note Assessment/Plan: Assessment: Barlow bite. Continue wound care per wound nurse consult. Needs to avoid recurrent injury and cold exposure for at least a year. Needs to follow up with [facility] after discharge from inpatient [facility]. Needs a surgical consult as well, which can happen via the Wound Care clinic. Cellulitis. Discussed with Infectious Disease, Dr Moser. Scenario not C/W Pseudomonas. Will treat with Augmentin PO. Follow-up with Wound Care Clinic. Dr. Moser will plan to see at Wound Care Clinic. Cough and chills. CBC is pending. Add nasal swab for influenza. 08/06/18 14:23 Subjective: Asked to see patient about increased redness and pain to his barlow been feet. Also noted to have a cough. He had a fever last night though no elevated temperature is recorded in in vitals in the chart. He currently complains of chills also. He denies dyspnea. Objective: Vital Signs Temp Pulse Resp BP Pulse Ox 37.3 C 97 15 129/63 H 96 08/06/18 02:49 08/05/18 23:48 08/05/18 23:48 08/05/18 23:48 08/05/18 23:48 Physical Exam - Physical Exam General Appearance: WD/WN, alert, mild distress Respiratory: normal breath sounds, No crackles, No rhonchi, No wheezing Skin: other (Black eschar over distal toes generally distal to the IP joint. Approximately there is erythema extending over the distal forefoot. He has swelling of the feet to the mid foot.) ICD10 Worksheet Patient Problems: Problems Problem Status Onset Abdominal pain Acute Frostbite Acute Perforated duodenal bulb ulcer Acute Pneumonia Acute
[2018-08-06] MEDS: AMOXICILLIN/CLAVULANATE POT 875/125 MG TAB PO SCH ×2 (14:36→20:18)
[2018-08-06] MEDS: LORazepam 0.5 MG TAB PO PRN (14:57)
[2018-08-06] MEDS ORDERED: QUEtiapine FUMARATE 200 MG TAB PO ONE (15:05)
[2018-08-06] MEDS ORDERED: IBUPROFEN 600 MG TAB PO PRN (15:07)
[2018-08-06] MEDS ORDERED: QUEtiapine FUMARATE 200 MG TAB PO SCH (15:07)
[2018-08-06] MEDS ORDERED: hydrOXYzine HCL 50 MG TAB PO PRN (15:10)
--- NOTE | 2018-08-06 15:29 | ASMTBHDC ---
Notes Note: Notes: CC confirmed client's doctor appt with [facility] for Sunday. Follow Up With: Mental [address] [place], [address] O# [phone] Client to discharge directly to [facility] for Respite Bed Next Appointment: August 14 (08/14/18) at [address] [facility] dustin/Galo Wilder to complete Comprehensive Assessment. [facility] [address] [address] F: Next Appt: with Geovanna Martines on SundayAugust 12 (08/12/18) at 10:05am Additional Resources: [facility] [address] [place] [id number] [address] Date Signed: 08/06/2018 03:28 PM Electronically Signed By:Xander Montana
[2018-08-06 16:51] LABS: PLATELET COUNT 331 10^3/uL (150-400)
[2018-08-07] MEDS: oxyCODONE IR 5 MG TAB PO PRN ×3 (03:56→12:23)
[2018-08-07] MEDS: ACETAMINOPHEN 325 MG TAB PO PRN (05:56)
[2018-08-07 06:38] VITALS: BP 122/71
[2018-08-07] MEDS: AMOXICILLIN/CLAVULANATE POT 875/125 MG TAB PO SCH (08:25)
[2018-08-07] MEDS ORDERED: QUEtiapine FUMARATE 100 MG TAB PO SCH (10:15)
--- NOTE | 2018-08-07 11:51 | WOCRNPDOC ---
WOCRN Advanced Assessment Note - Skin Integrity Problem, Advanced Assess Left Toes Frostbite Dressing Type: Open to Air (patient removed dressing as wound rn came into room ) Dressing Description: Intact, Shadowed Exudate Amount: Minimal Exudate Characteristic(s): Serosanguinous Integumentary Issue Intervention: Dressing Applied Kylie Wound Tissue: Erythema (extends from frostbitten tips to metatarsal heads) , Swollen Kylie Wound Swelling: Moderate Wound Bed Constitution: Stable Eschar Skin Integrity Problem Comment: Toes 1-4 frostbitten from proximal phalanx to distal phalanx. Stable eschar however first digit's surrounding skin may slough off as it appears discolored. Fouth digit only has eschar on plantar toe. Fifth digit appears to only have a tiny tip of purple tissue and likely will resolve. Education with patient and senior staff psychologist Wes on how to care for wounds. Apply betadine to all eshcar twice a day, weave gauze between toes and cover tips of toes with gauze. Recommend a post op boot for each foot to keep the pressure off the toes. Patient verbalized understanding. Right Toes Frostbite Dressing Type: Open to Air (patient removed dressing as wound RN came into room ) Dressing Description: Not Intact, Shadowed Exudate Amount: Minimal Exudate Characteristic(s): Serosanguinous Integumentary Issue Intervention: Dressing Applied Kylie Wound Tissue: Erythema (toes 1-4 erythematic from end of eschar to metatarsal heads ), Swollen (foot and ankle) Kylie Wound Swelling: Moderate Wound Bed Constitution: Mixed Loose & Adhered Slough/Eschar Skin Integrity Problem Comment: Great to has the most damage and necrosis. Skin is sloughing circumferentially and dorsal foot wound is now larger and 100% slough. Remaining open tissue is pinkish/yellow and wet. Orders updated to remove all moist wound healing and switch to betadine BID to help avoid wet gangrene. Second toe has a tiny open blister dorsally smaller than 0.3x0.3x0.1. Remaining 3rd and 4th toes have no open blisters but have intact stable eschar. Patient education done on how to care for wounds. 5th digit intact, without any necrosis and non erythematic. Patient verbalized understanding of the importance of proper wound care to minimize the risk of infection and digit loss.
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
[2018-08-07] MEDS ORDERED: metFORMIN HCL 500 MG TAB PO SCH (18:00)
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
== END 2018-08-07 15:12 | disposition home or self-care (01) | DRG 885 ==
LOC: BBEH
PROVIDERS: ADMIT Psychiatry & Neurology Behavioral Neurology & Neuropsychiatry; ATTEND Psychiatry & Neurology Psychiatry
DX: F31.9 Bipolar disorder, unspecified (principal); T33.831A Superficial frostbite of right toe(s), initial encounter; T33.832A Superficial frostbite of left toe(s), initial encounter; X31.XXXA Exposure to excessive natural cold, initial encounter; F43.12 Post-traumatic stress disorder, chronic; F12.90 Cannabis use, unspecified, uncomplicated; E11.9 Type 2 diabetes mellitus without complications; B19.20 Unspecified viral hepatitis C without hepatic coma; D63.8 Anemia in other chronic diseases classified elsewhere; Z59.0 Homelessness; Z72.0 Tobacco use; Z23 Encounter for immunization
CPT/HCPCS: G0009

== ENCOUNTER 2018-08-10 18:01 | Emergency (ER) | payer MEDICAID ==
[2018-08-10 18:12] VITALS: BP 112/65
--- NOTE | 2018-08-10 18:17 | EDPHY ---
H & P Stated Complaint: Med clearance for group home. Barlow bite to B feet Time Seen by Provider: 08/10/18 18:12 HPI/ROS: CHIEF COMPLAINT: Medical clearance for group home HISTORY OF PRESENT ILLNESS: The patient is brought in for medical clearance for the group home. He is an alcoholic who has frostbite to his feet he sustained approximately week ago. He currently is receiving wound care at the [facility]. The patient denies any acute fever, pain or other concerns. He is taking pain medications. Patient does plan on continuing to follow up with the clinic. REVIEW OF SYSTEMS: A comprehensive 10 point review of systems is otherwise negative aside from elements mentioned in the history of present illness. Source: Patient Exam Limitations: No limitations - Personal History Current Tetanus/Diphtheria Vaccine: Yes Current Tetanus Diphtheria and Acellular Pertussis (TDAP): Yes - Medical/Surgical History Hx Asthma: No Hx Chronic Respiratory Disease: No Hx Diabetes: Yes Hx Cardiac Disease: No Hx Renal Disease: No Hx Cirrhosis: No Hx Alcoholism: No Hx HIV/AIDS: No Hx Splenectomy or Spleen Trauma: No Other PMH: DM, HepC, spinal fusion, BIPOLAR, PTSD, CHRONIC BACK PAIN, A-FLUTTER - Social History Smoking Status: Current every day smoker - Physical Exam Exam: General Appearance: Alert, no distress Eyes: Pupils equal and round no pallor or injection ENT, Mouth: Mucous membranes moist Respiratory: There are no retractions, lungs are clear to auscultation Cardiovascular: Regular rate and rhythm Gastrointestinal: Abdomen is soft and nontender, no masses, bowel sounds normal Neurological: 5/5 strength all 4 extremities Skin: Frostbite noted to the feet bilaterally, some areas of dry necrosis, no significant fluctuance or evidence of wet gangrene. Musculoskeletal: Neck is supple nontender Extremities: symmetrical, full range of motion Psychiatric: Patient is oriented X 3, there is no agitation Constitutional: Initial Vital Signs Temperature (C) 36.4 C 08/10/18 18:01 Heart Rate 88 08/10/18 18:01 Respiratory Rate 16 08/10/18 18:01 Blood Pressure 112/65 08/10/18 18:01 O2 Sat (%) 97 08/10/18 18:01 O2 Delivery Mode Room Air Allergies/Adverse Reactions: poison rene extract Allergy (Verified 07/29/18 17:13) poison oak extract Allergy (Verified 07/29/18 17:13) Home Medications: Medication Instructions Recorded Amoxicillin/Clavulanate Pot 875 mg PO BID #11 tab 08/07/18 [Augmentin 875 MG TAB (*)] QUEtiapine FUMARATE [Seroquel 100 100 mg PO BID 30 Days tab 08/07/18 mg (*)] QUEtiapine FUMARATE [Seroquel 200 600 mg PO HS 30 Days tab 08/07/18 mg (*)] metFORMIN HCL [Glucophage 500 mg 500 mg PO BIDMEAL 30 Days tab 08/07/18 (*)] oxyCODONE IR [Oxycodone Ir (*)] 5 mg PO QID PRN 5 Days #20 tab 08/07/18 Medical Decision Making ED Course/Re-evaluation: The patient presents to the ED with frostbite to his toes bilaterally. There is no evidence of wet gangrene, cellulitis or significant abscess. The patient is currently receiving adequate wound care at his clinic. He should continue to have antibiotic ointment applied to his feet with dry sterile dressings twice daily. The patient is referred to our wound care clinic for a recheck as an outpatient. He is advised to return to the ED for any fever, discharge, increased redness or swelling. Departure - Departure Disposition: Home, Routine, Self-Care Clinical Impression: Frostbite Condition: Good Instructions: Frostbite (ED) Additional Instructions: 1. Apply antibiotic ointment to frostbite twice daily. 2. Dry sterile dressings twice daily. 3. Return to the ED for any redness going up the leg, fever, foul discharge or other concerns. 4. I do recommend following up with our general surgeon as an outpatient for a wound check in the coming week. Referrals: Mary Li MD [Medical Doctor] - As per Instructions
== END 2018-08-10 18:46 | disposition home or self-care (01) ==
LOC: EDUNIT#
DX: T33.831A Superficial frostbite of right toe(s), initial encounter (principal); T33.832A Superficial frostbite of left toe(s), initial encounter; X31.XXXA Exposure to excessive natural cold, initial encounter; E11.9 Type 2 diabetes mellitus without complications; B19.20 Unspecified viral hepatitis C without hepatic coma; F17.200 Nicotine dependence, unspecified, uncomplicated; Z98.1 Arthrodesis status

== ENCOUNTER 2018-08-13 02:48 | Emergency (ER) | payer MEDICAID ==
[2018-08-13] MEDS ORDERED: QUEtiapine FUMARATE 200 MG TAB PO ONE (03:32)
[2018-08-13] MEDS ORDERED: ACETAMINOPHEN 500 MG TAB PO ONE (03:32)
[2018-08-13] MEDS ORDERED: AMOXICILLIN/CLAVULANATE POT 875/125 MG TAB PO ONE (03:32)
--- NOTE | 2018-08-13 03:34 | EDPHY ---
H & P Stated Complaint: needs meds filled Time Seen by Provider: 08/13/18 02:52 HPI/ROS: HPI The patient presents with bilateral foot pain which has been present for the last approximately 2 weeks since he sustained frostbite to both of his feet. He presents today brought in by ambulance. He was released from care home at about 7 :00 p.m. Today though says he did not have his medication. He stays at respite care currently but he was not able to return there tonight. He says his medication is locked there and he needs his medication for tonight. He is requesting oxycodone, Seroquel, an antibiotic.. REVIEW OF SYSTEMS 10 systems were reviewed and negative with the exception of the elements mentioned in the history of present illness. PMHx: Frostbite to both feet sustained earlier in the month, history of diabetes, bipolar, PTSD Soc Hx: Currently staying in respite care PHYSICAL General Appearance: Alert, no distress Eyes: Pupils equal and round no pallor or injection ENT, Mouth: Mucous membranes moist Respiratory: There are no retractions, lungs are clear to auscultation Cardiovascular: Regular rate and rhythm Gastrointestinal: Abdomen is soft and non-tender, no masses, bowel sounds normal Neurological: A&O, moves all extremities Skin: Warm and dry, no rashes Musculoskeletal: Neck is supple non tender Extremities: symmetrical, full range of motion, both feet with eschars on all toes which are dry and blackish in color, toes are warm Psychiatric: Patient is oriented X 3, there is no agitation Source: Patient Exam Limitations: No limitations - Personal History Current Tetanus/Diphtheria Vaccine: Yes Current Tetanus Diphtheria and Acellular Pertussis (TDAP): Yes - Medical/Surgical History Hx Asthma: No Hx Chronic Respiratory Disease: Yes Hx Diabetes: Yes Hx Cardiac Disease: No Hx Renal Disease: No Hx Cirrhosis: No Hx Alcoholism: No Hx HIV/AIDS: No Hx Splenectomy or Spleen Trauma: No Other PMH: DM, HepC, spinal fusion, BIPOLAR, PTSD, CHRONIC BACK PAIN, A-FLUTTER - Social History Smoking Status: Current every day smoker Constitutional: Initial Vital Signs Temperature (C) 36.6 C 08/13/18 02:52 Heart Rate 90 08/13/18 02:52 Respiratory Rate 16 08/13/18 02:52 Blood Pressure 136/80 H 08/13/18 02:52 O2 Sat (%) 99 08/13/18 02:52 O2 Delivery Mode Room Air Allergies/Adverse Reactions: poison rene extract Allergy (Verified 08/13/18 02:49) poison oak extract Allergy (Verified 08/13/18 02:49) Home Medications: Medication Instructions Recorded QUEtiapine FUMARATE [Seroquel 100 100 mg PO BID 30 Days tab 08/07/18 mg (*)] QUEtiapine FUMARATE [Seroquel 200 600 mg PO HS 30 Days tab 08/07/18 mg (*)] metFORMIN HCL [Glucophage 500 mg 500 mg PO BIDMEAL 30 Days tab 08/07/18 (*)] oxyCODONE IR [Oxycodone Ir (*)] 5 mg PO QID PRN 5 Days #20 tab 08/07/18 Glipizide 08/13/18 Medical Decision Making Differential Diagnosis: 47-year-old male, released from care home today, currently being treated for frostbite of both feet, unable to get into his respite care tonight comes into the emergency department brought in by ambulance asking for his medications. I explained to him that we cannot give him his oxycodone here. I will give him his antibiotic and Seroquel as well as Tylenol per his request. He will be discharged home. He does not appear to have any infection of his frostbite, wounds appear dry, there is not concern for wet gangrene. Departure - Departure Disposition: Home, Routine, Self-Care Clinical Impression: Foot pain, bilateral Frostbite Qualifiers: Encounter type: subsequent encounter Qualified Code(s): T33.90XD - Superficial frostbite of unspecified sites, subsequent encounter Condition: Good Instructions: Frostbite (ED) Referrals: [facility],. [Clinic] - As per Instructions Mary Li MD [Medical Doctor] - As per Instructions
[2018-08-13 03:46] VITALS: BP 123/60
== END 2018-08-13 03:46 | disposition home or self-care (01) ==
LOC: EDUNIT#
DX: M79.671 Pain in right foot (principal); M79.672 Pain in left foot; T33.90XD Superficial frostbite of unspecified sites, subsequent encounter; X31.XXXD Exposure to excessive natural cold, subsequent encounter; G89.29 Other chronic pain; F17.210 Nicotine dependence, cigarettes, uncomplicated; E11.9 Type 2 diabetes mellitus without complications; F31.9 Bipolar disorder, unspecified; F43.10 Post-traumatic stress disorder, unspecified; B19.20 Unspecified viral hepatitis C without hepatic coma; Z98.1 Arthrodesis status; Z59.0 Homelessness

== ENCOUNTER 2018-08-19 09:19 | Emergency (ER) | payer MEDICAID ==
[2018-08-19 09:26] VITALS: BP 152/90
--- NOTE | 2018-08-19 09:49 | EDPHY ---
H & P Stated Complaint: Toe pain, DX Frostbite 2 weeks ago-on abx Time Seen by Provider: 08/19/18 09:21 HPI/ROS: CHIEF COMPLAINT: Frostbite of all toes HISTORY OF PRESENT ILLNESS: 47-year-old homeless male presents with frostbite. He was admitted 07/31/2018 for an overdose and had frostbite of office toes at that point. He has been seen multiple times in the emergency department and at [facility] for wound care of his toes. He was at the police station today, complained of severe pain in his toes, so was transported here by EMS. REVIEW OF SYSTEMS: complete 10 point ROS reviewed and is negative except for the noted elements in the HPI - Personal History Current Tetanus/Diphtheria Vaccine: Yes Current Tetanus Diphtheria and Acellular Pertussis (TDAP): Yes - Medical/Surgical History Hx Asthma: No Hx Chronic Respiratory Disease: Yes Hx Diabetes: Yes Hx Cardiac Disease: No Hx Renal Disease: No Hx Cirrhosis: No Hx Alcoholism: No Hx HIV/AIDS: No Hx Splenectomy or Spleen Trauma: No Other PMH: DM, HepC, spinal fusion, BIPOLAR, PTSD, CHRONIC BACK PAIN, A-FLUTTER - Social History Smoking Status: Current every day smoker - Physical Exam Exam: Alert and oriented, pleasant Extremities: Bilateral feet-necrosis of all toes distally, with some open wounds of the proximal toes, toes are all bandaged initially. No erythema or evidence of infection Skin: As above Neuro: Motor and sensory intact Vascular: Capillary refill brisk distally. Constitutional: Initial Vital Signs Temperature (C) 36.7 C 08/19/18 09:19 Heart Rate 93 08/19/18 09:19 Respiratory Rate 16 08/19/18 09:19 Blood Pressure 152/90 H 08/19/18 09:19 O2 Sat (%) 96 08/19/18 09:19 O2 Delivery Mode Room Air Allergies/Adverse Reactions: poison rene extract Allergy (Verified 08/13/18 02:49) poison oak extract Allergy (Verified 08/13/18 02:49) Home Medications: Medication Instructions Recorded QUEtiapine FUMARATE [Seroquel 100 100 mg PO BID 30 Days tab 08/07/18 mg (*)] QUEtiapine FUMARATE [Seroquel 200 600 mg PO HS 30 Days tab 10/24/18 mg (*)] metFORMIN HCL [Glucophage 500 mg 500 mg PO BIDMEAL 30 Days tab 08/07/18 (*)] oxyCODONE IR [Oxycodone Ir (*)] 5 mg PO QID PRN 5 Days #20 tab 08/07/18 Glipizide 08/13/18 Medical Decision Making ED Course/Re-evaluation: This patient presents with frostbite of a toes, currently undergoing wound care. No evidence of infection. The manager chemistry was involved in this patient's care. Pt scheduled for [facility] wound care clinic and [facility] appt by ED CM. Percocet prescribed d/t ongoing pain secondary to frostbite and necrosis. Departure - Departure Disposition: Home, Routine, Self-Care Clinical Impression: Frostbite with tissue necrosis of left toe(s), sequela Instructions: Frostbite (ED) Additional Instructions: You have an appointment at [facility] ([phone]) on Sunday08/21/18 at 9a.m. Please arrive on-time. PLease call their office if you need to cancel/reschedule. Continue to follow-up w/[facility] at [facility]. Referrals: Wound Healing Center,[facility] [Clinic] - As per Instructions [facility],. [Clinic] - As per Instructions
--- NOTE | 2018-08-19 16:25 | ASMTCMCOM ---
CM Note CM Note Notes: Pt presented to the ED for frostbite to all of his toes. Pt has been seen several times in the ED since 07/29 for frostbite or other reasons. Pt has followed up with Juliana at [facility] this past Sunday and had dressings applied. Pt was unaware he had an appt at [facility] this past Sun. This CM called [facility] and was able to get pt another appt for this Sun08/21/18 at 9a.m. Pt states he will make it to the appt. Pt provided address, phone #, and appt info on his DC instructions. Pt encouraged to also follow up w/ [facility] as needed. This CM called CHRISTIAN Hermosillo Chlorination Operator at [facility] and discussed pt's ED visit today, DC instructions to follow up with [facility] appt, and relayed that pt was provided a narcotic prescription for his pain r/t barraza bite. Pt states he has been staying in respite through [facility] for almost a week and has a week left. Pt states he used to stay at [facility] but they "kicked me out just based on what one kendra said." This CM offered to send a referral to [facility] and pt said he would appreciate any extra help. CM available for further assistance if needed. Date Signed: 08/19/2018 04:24 PM Electronically Signed By:Mariela Guy RN
--- NOTE | 2018-08-19 16:40 | ASMTCMCOM ---
CM Note CM Note Notes: Update: Spoke w/ Jaimee at [facility] at [facility] and she said pt "no showed" to his appt w/them this past Sunday 08/12 after being D/C'd from [facility]. Pt has not been seen at [facility] since 07/31/18. Jaimee states she will see if Melissa, Homeless Outreach RN, can keep an eye out for the patient and encourage him to follow up. Jaimee aware pt has been staying at respite through [facility] and will look into reaching the pt that way. Jaimee also provided w/pt's most updated cell #. Per chart review it is unclear if pt was provided a narcotics Rxn from the ED. ED RN had told CM that he was but there are no Rxns in DC summary or instructions. Jaimee smith. Date Signed: 08/19/2018 04:39 PM Electronically Signed By:Mariela Guy RN
== END 2018-08-19 12:07 | disposition home or self-care (01) ==
LOC: EDUNIT#
DX: M79.674 Pain in right toe(s) (principal); M79.675 Pain in left toe(s); T34.831 Frostbite with tissue necrosis of right toe(s); T34.832 Frostbite with tissue necrosis of left toe(s); X31.XXXS Exposure to excessive natural cold, sequela; Z59.0 Homelessness